=== PATIENT | male | born 1990 | race African-American/Black ===

== ENCOUNTER → 2024-02-10 | Outpatient (CLI) | payer OTHER ==
[~2024-02-10] MED LIST: Iohexol 300 - 10 ML VIAL ONE
== END ==
LOC: MHCPAIN 08:53
DX: M46.1 Sacroiliitis, not elsewhere classified (principal); M53.3 Sacrococcygeal disorders, not elsewhere classified; M54.50 Low back pain, unspecified
CPT/HCPCS: G0260; J0665; J1040; Q9967

== ENCOUNTER → 2024-03-08 | Outpatient (CLI) | payer OTHER | LOC: MHCPAIN 15:08 | DX: M47.896 Other spondylosis, lumbar region (principal); M53.3 Sacrococcygeal disorders, not elsewhere classified | CPT/HCPCS: G0463 ==

== ENCOUNTER → 2024-06-28 | Outpatient (CLI) | payer OTHER | LOC: MHCPAIN 09:10 | DX: M46.1 Sacroiliitis, not elsewhere classified (principal); M54.50 Low back pain, unspecified | CPT/HCPCS: G0463 ==

== ENCOUNTER → 2024-07-20 | Outpatient (CLI) | payer OTHER | LOC: MHCPAIN 07:39 | DX: M54.50 Low back pain, unspecified (principal); M46.1 Sacroiliitis, not elsewhere classified; M53.3 Sacrococcygeal disorders, not elsewhere classified | CPT/HCPCS: G0260; J0665; J1010; Q9967 ==

== ENCOUNTER → 2024-08-22 | Outpatient (CLI) | payer OTHER | LOC: MHCPAIN 09:23 | DX: G89.29 Other chronic pain (principal); M46.1 Sacroiliitis, not elsewhere classified | CPT/HCPCS: G0463 ==